=== PATIENT | female | born 1965 | race Caucasian/White ===

== ENCOUNTER → 2017-09-20 | Outpatient (CLI) | payer OTHER ==
[~2017-09-20] MED LIST: ESTR1TAB PO; IBUP1TAB7 PO; LEVO.075 PO; MEDR5TAB3 PO; PROG100C PO; TOPA50TA7 PO
[2017-09-20 14:15] LABS: AUTOMATED NEUTROPHIL # 3.3 TH/MM3 (1.8-7.7); BASOPHIL % 0.5 % (0.0-2.0); EOSINOPHIL # 0.2 TH/MM3 (0-0.4); EOSINOPHIL % 3.4 % (0.0-4.0); HEMATOCRIT 38.1 % (35.0-46.0); HEMOGLOBIN 12.8 GM/DL (11.6-15.3); LYMPH % 35.9 % (9.0-44.0); LYMPHOCYTE # 2.1 TH/MM3 (1.0-4.8); MEAN CELL VOLUME 83.5 FL (80.0-100.0); MEAN CORPUSCULAR HGB CONC 33.6 % (32.0-36.0); MONO % 5.1 % (0.0-8.0); MONOCYTE # 0.3 TH/MM3 (0-0.9); NEUT % 55.1 % (16.0-70.0); PLATELET COUNT 334 TH/MM3 (150-450); RED BLOOD COUNT 4.56 MIL/MM3 (4.00-5.30); RED CELL DISTRIBUTION WIDTH 16.3 % (11.6-17.2); WHITE BLOOD COUNT 5.9 TH/MM3 (4.0-11.0)
[2017-09-20 14:45] LABS: ALBUMIN 4.3 GM/DL (3.4-5.0); AST (GOT) 22 U/L (15-37); BICARBONATE 24.5 MEQ/L (21.0-32.0); BLOOD UREA NITROGEN 10 MG/DL (7-18); CALCIUM 8.5 MG/DL (8.5-10.1); CHLORIDE 108 MEQ/L (98-107); CREATININE 0.94 MG/DL (0.50-1.00); GLOMERULAR FILTRATION RATE 63 ML/MIN (>89); GLUCOSE,FASTING 83 MG/DL (74-99); SODIUM (NA) 142 MEQ/L (136-145)
[2017-09-20 14:46] LABS: ALT (GPT) 24 U/L (10-53)
[2017-09-20 14:49] LABS: ALKALINE PHOSPHATASE 49 U/L (45-117); TOTAL BILIRUBIN ADULT 0.7 MG/DL (0.2-1.0); TOTAL PROTEIN 7.9 GM/DL (6.4-8.2)
== END ==
LOC: CPRE 13:27
PROVIDERS: ATTEND Urology
DX: Z01.812 Encounter for preprocedural laboratory examination (principal); Z01.818 Encounter for other preprocedural examination; N20.0 Calculus of kidney
CPT/HCPCS: 36415; 80053; 85025

== ENCOUNTER 2017-09-23 07:34 | Day surgery (SDC) | payer OTHER ==
[~2017-09-23] VITALS: Ht 165.1 cm; Wt 68.2 kg
[2017-09-23 08:00] VITALS: BP 121/88; PULSE 77; RESP 16; TEMP 97.8; O2SAT 98
[2017-09-23] MEDS ORDERED: SODIUM CHLORIDE 0.9% 1000 ML IV SCH (08:00)
[2017-09-23] MEDS ORDERED: LEVOFLOXACIN 500 MG PREMIX 100 ML - nephrostomy tube insertion or exchange IV SCH (08:00)
[2017-09-23 08:29] LABS: PROTHROMBIN TIME - PATIENT 10.4 SEC (9.8-11.6)
[2017-09-23] MEDS ORDERED: MIDAZOLAM HCL 2 MG/2 ML VIAL ONE (09:00)
[2017-09-23] MEDS ORDERED: fentaNYL CITRATE 250 MCG/5 ML AMP ONE (09:00)
--- NOTE | 2017-09-23 10:20 | PD.RAD ---
Post Procedure Progress Note Pre Procedure Diagnosis: (1) Nephrolithiasis Post Procedure Diagnosis: (1) Nephrolithiasis Procedure Date: Sep 23, 2017 Supervising Radiologist: Dakota Ivy JR Proceduralist/Assist: Adeline Sanchez, RT(R)(), Margy Wu RT(R) Anesthesia: Conscious Sedation Plan of Activity Patient to Unit: ROPU Patient Condition: Good See PACS Report for procedural detail/treatment Drainage Procedure Procedure 1 Imaging Guidance: Fluoroscopy, Ultrasound Side: Right Procedure Type: Nephrostomy, Ureteral Stent Procedure: Placement Swedish: 8 Fluid Description: Clear Findings: Difficult case. Patient's right kidney sits quite high in the retroperitoneum. Two accesses performed. Black catheter access is mid pole and courses down ureter into the bladder. Blue catheter enters lower pole and is coiled in upper pole. 3 stones seen. Two in proximal ureter. Plan F/U with Dr Kellie Ivy Jr.,Dakota Tompkins MD Sep 23, 2017 10:20
[2017-09-23 10:25] VITALS: BP 105/69; PULSE 68; RESP 18; TEMP 98.3; O2SAT 99
[2017-09-23 10:40] VITALS: BP 115/71; PULSE 67; RESP 18; O2SAT 99
[2017-09-23 10:50] VITALS: BP 115/71; PULSE 68; RESP 18; O2SAT 99
[2017-09-23 11:20] VITALS: BP 107/73; PULSE 68; RESP 18; O2SAT 99
[2017-09-23 12:00] VITALS: BP 104/68; PULSE 76; RESP 16; O2SAT 96
--- NOTE | 2017-09-23 12:18 | RADRPT ---
EXAM DATE/TIME: 09/23/2017 10:25 [facility] COMPARISON: No previous studies available for comparison. INDICATIONS : Patient presents with calculus in right kidney in need of nephrostomy tube placement for nephrolithia sis. MEDICAL HISTORY : Hypothyroidism Osteoarthritis SURGICAL HISTORY : Breast Implant ENCOUNTER: Initial ACUITY: 1 month PAIN SCORE: 6/10 LOCATION: Bilateral lower back FLUORO TIME: 12.4 minutes IMAGE SERIES: 1 SEDATION TIME: 40 minutes CONTRAST: 30 cc Omnipaque (iohexol) 350 MEDICATION(S): 1.) 4 mg midazolam (Versed) IV 2.) 250 mcg fentanyl (Sublimaze) IV DEVICE(S): 1.) 8 Swiss nephrostomy catheter 2.) 4F Non Taper catheter PROCEDURE : 1. Ultrasound-guided puncture of the kidney. 2. Antegrade percutaneous pyelogram. 3. Percutaneous nephrostomy placement. 4. Conscious sedation with continuous EKG and oximetry monitoring. I reviewed the patient's palpation CT scan. The risks, benefits and alternatives to the procedure wer e explained and verbal and written consent was obtained. The site was prepped in sterile fashion. F ull sterile technique was used, including cap, mask, sterile gloves and gown and a large sterile shee t. Hand hygiene and 2% chlorhexidine and/or betadine/alcohol prep was utilized per protocol for cuta neous antisepsis. Sterile gel and sterile probe cover were utilized for ultrasound guidance. The s kin and subcutaneous tissues were infiltrated with local anesthetic solution. The patient's right kidney lies fairly cephalad within the retroperitoneum. The mid and upper pole ar e largely behind the lower ribs. Under sonographic guidance and fluoroscopic guidance a 22 gauge need le was passed down to the large stone within the renal pelvis. Injection of contrast opacified the co llecting system revealing a large stone at the UPJ. 2 stones are seen involving the proximal ureter. Each measures approximately 1.5 cm in size. These are nonobstructing. Contrast passes between the sto fiorella and into the urinary bladder. An access was performed under fluoroscopic guidance into the lower pole calyx. The lower pole access did cause a fairly tight bend in the catheter to gain access to the ureter which would likely generate some difficulty for stone extraction from the ureter. A second ac cess was therefore performed utilizing a midpole approach. This necessitated a subchondral approach i nvolve the 12th rib. This access shows left angle for the ureter. The lower pole access was utilized for an 8 Swiss nephrostomy tube which was coiled in the upper pole. The mid pole access was utilized for a 4 Swiss Berenstein catheter which was passed down the ureter and into the urinary bladder. Brent th were sutured in place. Conscious sedation was performed with the prescribed dosages and duration as above in the presence of an independent trained radiology nurse to assist in the monitoring of the patient. EKG and oximetry remained stable throughout the procedure. The patient tolerated the procedure well and there were n o complications. The patient was sent to post anesthesia recovery in stable condition. CONCLUSION: Uncomplicated nephrostomy tube placement as above. The 4 Swiss black Berenstein catheter is a midpol e approach and terminates in the urinary bladder. The 8 Swiss nephrostomy tube is a lower pole acces s and is coiled in the upper pole. The patient has 3 stones. A large stone at the UPJ with 2 smaller stones within the proximal ureter. No obstruction observed. Dakota Ivy Jr., MD on September 23, 2017 at 12:08 Board Certified Radiologist. This report was verified electronically.
== END 2017-09-23 12:20 | disposition home or self-care (01) ==
LOC: HROP 07:34 → HRIP 07:35 → HROP 12:20
PROVIDERS: ATTEND Urology
DX: N20.2 Calculus of kidney with calculus of ureter (principal); N28.1 Cyst of kidney, acquired; E03.9 Hypothyroidism, unspecified; M17.9 Osteoarthritis of knee, unspecified; M19.042 Primary osteoarthritis, left hand; M19.041 Primary osteoarthritis, right hand; Z87.440 Personal history of urinary (tract) infections; Z01.818 Encounter for other preprocedural examination
CPT/HCPCS: 50433; 50694; 85610; 85730; 99152; 99153; C1729; C1769; C1887; C1894; J1956; J2250; J3010; J7030

== ENCOUNTER 2017-09-26 06:02 | Observation (INO) | payer OTHER ==
[~2017-09-26] VITALS: Ht 162.6 cm; Wt 72.0 kg
[~2017-09-26 06:02] MED LIST changes: -PROG100C PO
[2017-09-26] MEDS ORDERED: POVIDONE IODINE 5% (ANTISEPSIS KIT) 4 APPLICATIONS EACH NARE PRN (07:00)
[2017-09-26] MEDS ORDERED: METOPROLOL TARTRATE 25 MG TAB PO PRN (07:00)
[2017-09-26] MEDS ORDERED: SODIUM CHLORID 0.9% 500 ML IV PRN (07:00)
[2017-09-26] MEDS ORDERED: LACTATED RINGER'S 1000 ML IV PRN (07:00)
[2017-09-26] MEDS ORDERED: CHLORHEXIDINE GLUCONATE 2 % 1 PACK (2 CLOTHS) TOPICAL PRN (07:00)
[2017-09-26] MEDS ORDERED: FUROSEMIDE 40 MG/4 ML VIAL ONE (07:08)
[2017-09-26] MEDS ORDERED: ceFAZolin 2 GM PREMIX 50 ML ONE (07:20)
[2017-09-26] MEDS ORDERED: ceFAZolin INJ 1,000 MG VIAL ONE (07:25)
[2017-09-26] MEDS ORDERED: SODIUM CHLORIDE 0.9% INJ 100 ML ONE (07:26)
[2017-09-26] MEDS ORDERED: ceFAZolin 2 GM PREMIX 50 ML IV SCH (07:30)
[2017-09-26] MEDS ORDERED: ceFAZolin 1,000 MG/NS 100 ML IV SCH ×2 (07:30)
[2017-09-26] MEDS ORDERED: ACETAMINOPHEN 1000 MG/100 ML 100 ML IV ONE (07:58)
--- NOTE | 2017-09-26 11:26 | PD.OP ---
Operative Report Date of Surgery: Sep 26, 2017 Preoperative Diagnosis: (1) Renal calculus, right (2) Ureteral calculus, right Postoperative Diagnosis: (1) Renal calculus, right (2) Ureteral calculus, right Procedure: Right nephrostogram, right percutaneous nephrolithotomy with ultrasonic lithotripsy and antegrade right ureteroscopy with laser lithotripsy. Anesthesia: General Surgeon: Mitch Hopkins Rivet Sorter(s): None Operation and Findings: Indication for procedures: Case of a pleasant 51-year-old female with an approximately 3 cm right renal pelvis calculus as well as 2 proximal ureteral calculi each measuring approximately 1 cm in size who presents now for definitive management. Operative procedures in detail: Patient was brought to the operating room suite and placed under general endotracheal anesthesia while still on the stretcher. Once intubated she was placed on the OR table in the prone position and all pressure points adequately padded. Patient was then prepped and draped in normal sterile fashion. After an appropriate timeout was undertaken I proceeded with performing a right nephrostogram through the previously placed nephrostomy tube. The patient was noted to have a large stone involving the renal pelvis as well as 2 proximal ureteral stones each measuring approximately 1 cm in size. I then was able to advance a sensor 0.035 wire through a secondarily previously placed nephroureteral tube. The wire was advanced all the way down into the urinary bladder under fluoroscopic guidance. Since this nephroureteral tube was at a secondary access site I utilized this 1 to extend the skin incision approximate 1 cm in length and I left the pigtail nephrostomy tube in place. I then sequentially dilated a tract over this wire with a 5 Faroese, 6 Faroese and double-lumen catheter to facilitate passage of the UroMax balloon. The UroMax balloon was then easily advanced with the tip within the renal pelvis and the balloon inflated to 20 frankie of pressure. The nephroscope sheath was then advanced over the balloon well was still inflated. The sheath was advanced into the right renal pelvis under fluoroscopy and the balloon subsequently deflated and removed. I then advanced the flexible cystoscope through this sheath and tracked this down the right ureter and the proximal ureteral stone was clearly visualized. I attempted to remove this intact with the 2.4 Faroese stone basket but it would not freely migrate. I does utilize the 200 m holmium laser fiber and broke the stone down into several small pieces which were subsequently easily retrieved and removed with the stone basket. I then reintroduced the flexible cystoscope down the ureter and the second ureteral stone was clearly visualized grasped with the same stone basket and removed intact. The rigid nephroscope was then utilized and I was able to clearly see the large right renal pelvis stone. This was broken down and extracted with the [employer] ultrasound device. Once the stone was broken down and removed I repeated flexible cystoscopy and no significantly sized stone fragments are seen either involving the intrarenal collecting system or the proximal ureter. I then repeated a nephrostogram through the previously placed nephrostomy tube and there was prompt drainage of contrast down the right ureter. The nephroscope and sheath were then removed and the site was closed with interrupted 2-0 silk sutures and a sterile dressing applied. The nephrostomy tube was connected to gravity drainage. The patient tolerated the procedures without complications and was transferred to the PACU in satisfactory condition. Mitch Hopkins MD Sep 26, 2017 11:26
[2017-09-26] MEDS ORDERED: Post-op Orders (for Pharmacy) XX ONE (11:30)
[2017-09-26] MEDS ORDERED: ONDANSETRON HCL 4 MG/2 ML VIAL IV PUSH PRN (11:30)
[2017-09-26] MEDS ORDERED: SODIUM CHLORIDE 0.9% FLUSH 10 ML FLUSH IV FLUSH PRN (11:30)
[2017-09-26] MEDS ORDERED: MIDAZOLAM HCL 2 MG/2 ML VIAL ONE (11:36)
[2017-09-26] MEDS ORDERED: *morphine SULFATE 10 MG/ML PERIprocedure ONLY ONE ×2 (11:39→12:05)
[2017-09-26] MEDS ORDERED: LIDOCAINE HCL 1% PF 5 ML SYRINGE OTHER ONE (12:00)
[2017-09-26] MEDS ORDERED: LACTATED RINGER'S 1000 ML INJ 1,000 ML IV ONE (12:00)
[2017-09-26] MEDS ORDERED: KETOROLAC TROMETHAMINE 30 MG/ML (IVP) VIAL IV PUSH ONE (12:00)
[2017-09-26] MEDS ORDERED: ONDANSETRON HCL 4 MG/2 ML VIAL IV ONE (12:00)
[2017-09-26] MEDS ORDERED: DEXAMETHASONE SOD PHOS 4 MG/ML VIAL IV ONE (12:00)
[2017-09-26] MEDS: DEXT 5%-NACL 0.45% 1000 ML INJ 1,000 ML IV SCH ×2 (12:00→20:30)
[2017-09-26] MEDS ORDERED: ROCURONIUM INJ 50 MG/5 ML SYRINGE IV PUSH ONE (12:00)
[2017-09-26] MEDS ORDERED: PROPOFOL 200 MG/20 ML AMP IV ONE (12:00)
[2017-09-26] MEDS ORDERED: ePHEDrine/NS 25 MG/5 ML SYRINGE IV ONE (12:00)
--- NOTE | 2017-09-26 13:02 | RADRPT ---
EXAM DATE/TIME: 09/26/2017 09:21 [facility] COMPARISON: No previous studies available for comparison. INDICATIONS : Right kidney stone with obstruction. MEDICAL HISTORY : Renal calculi. SURGICAL HISTORY : ENCOUNTER: Initial ACUITY: 1 day PAIN SCORE: Non-responsive. LOCATION: Right abdomen FINDINGS: Following percutaneous nephrolithotomy no residual stone is evident. Nephrostomy tube is in the nelly l pelvis. Guidewire down the ureter.. CONCLUSION: No residual stone. Cedric Cuenca MD FACR on September 26, 2017 at 13:00 Board Certified Radiologist. This report was verified electronically.
[2017-09-26] MEDS: HYDROmorphone HCL PF 2 MG/ML VIAL IV PUSH PRN ×2 (13:19→19:26)
[2017-09-26 16:00] VITALS: BP 119/68; PULSE 82; RESP 18; TEMP 97; O2SAT 97
[2017-09-26 20:00] VITALS: BP 116/80; PULSE 81; RESP 20; TEMP 98.2; O2SAT 98
[2017-09-26] MEDS: TOPIRAMATE 25 MG TAB PO SCH (20:32)
[2017-09-26] MEDS: SODIUM CHLORIDE 0.9% FLUSH 10 ML FLUSH IV FLUSH SCH (21:00)
[2017-09-27] VITALS: BP 110/65; PULSE 75; RESP 18; TEMP 97.9; O2SAT 98
[2017-09-27 04:00] VITALS: BP 113/73; PULSE 80; RESP 18; TEMP 98.4; O2SAT 100
[2017-09-27] MEDS: DEXT 5%-NACL 0.45% 1000 ML INJ 1,000 ML IV SCH (06:11)
[2017-09-27] MEDS: oxyCODONE/ACETAMINOPHEN 5 MG/325 MG TAB PO PRN ×3 (06:11→17:13)
[2017-09-27 07:38] LABS: HEMATOCRIT 33.7 % (35.0-46.0); HEMOGLOBIN 11.4 GM/DL (11.6-15.3)
[2017-09-27 08:00] VITALS: BP 130/74; PULSE 88; RESP 17; TEMP 97.8; O2SAT 99
[2017-09-27 08:11] LABS: BICARBONATE 27.3 MEQ/L (21.0-32.0); CALCIUM 8.1 MG/DL (8.5-10.1); CREATININE 0.81 MG/DL (0.50-1.00)
--- NOTE | 2017-09-27 08:11 | RADRPT ---
EXAM DATE/TIME: 09/27/2017 08:00 [facility] COMPARISON: ABDOMEN KUB ONLY, September 26, 2017, 9:21. INDICATIONS : Status post right percutaneous nephrolithotomy. MEDICAL HISTORY : Osteoarthritis. Hypothyroidism. Right side kidney nephrostomy tube placed on 09/23/17. SURGICAL HISTORY : section. Breast augmentation. ENCOUNTER: Subsequent ACUITY: 4 - 6 days PAIN SCORE: 5/10 LOCATION: Right Abdomen/flank. FINDINGS: Supine view of the abdomen was performed. The abdominal bowel gas pattern is normal. Percutaneous r ight sided nephrostomy tube noted. No abnormal masses, calcifications, or organomegaly is seen. The osseous structures are unremarkable. CONCLUSION: Percutaneous right sided nephrostomy tube. Pancho Pickering MD on September 27, 2017 at 8:09 Board Certified Radiologist. This report was verified electronically.
[2017-09-27] MEDS ORDERED: ESTRADIOL 1 MG TAB PO SCH (09:00)
[2017-09-27] MEDS ORDERED: LEVOTHYROXINE SODIUM 75 MCG TAB PO SCH (09:00)
[2017-09-27] MEDS: TOPIRAMATE 25 MG TAB PO SCH (09:40)
[2017-09-27] MEDS: POTASSIUM CHLOR 20 MEQ PREMIX 100 ML IV SCH ×3 (09:41→13:51)
[2017-09-27] MEDS: SODIUM CHLORIDE 0.9% FLUSH 10 ML FLUSH IV FLUSH SCH (09:41)
[2017-09-27] MEDS ORDERED: PERC5TAB12 PO (11:49)
[2017-09-27] MEDS ORDERED: CEPH-459 PO (11:49)
--- NOTE | 2017-09-27 11:52 | HHI.DS ---
Discharge Summary Admission Date Sep 26, 2017 at 11:55 Discharge Date: Sep 27, 2017 Admitting Diagnosis (1) Renal calculus, right Diagnosis: Principal ICD Codes: N20.0 - Calculus of kidney (2) Ureteral calculus, right Diagnosis: Principal ICD Codes: N20.1 - Calculus of ureter Brief History 51-year-old female with a large right renal calculus as well as 2 proximal ureteral calculi admitted for definitive management. Please refer to admission history and physical for additional history and pertinent physical findings. CBC/BMP: 09/27/17 0432 09/27/17 0432 Significant Findings Laboratory Tests Test 09/27/17 04:32 Hemoglobin 11.4 GM/DL (11.6-15.3) Hematocrit 33.7 % (35.0-46.0) Calcium Level 8.1 MG/DL (8.5-10.1) Potassium Level 2.9 MEQ/L (3.5-5.1) Chloride Level 108 MEQ/L (98-107) Estimat Glomerular Filtration Rate 75 ML/MIN (>89) PE at Discharge Abdomen soft, nondistended, nontender Right nephrostomy tube draining clear yellow urine. Extremities well-perfused, nontender Hospital Course Patient admitted on September 26 and underwent a right percutaneous nephrolithotomy with ultrasonic lithotripsy along with antegrade right ureteroscopy with laser lithotripsy. The procedures went well without complications. Postoperatively the patient did well. She was complaining of some nausea however by postop day #1 the nausea had significantly subsided. Laboratory studies on postop day 1 demonstrated a stable hematocrit however the patient was noted to have a low potassium and supplementation was ordered. The plan will be to repeat her serum potassium levels after potassium supplementation completed and if within normal range discharge the patient home. Patient will follow-up at my office in 3 days to have her right nephrostomy tube removed. Pt Condition on Discharge: Good Discharge Disposition: Discharge Home Discharge Instructions DIET: Follow Instructions for: As Tolerated, No Restrictions Activities you can perform: Shower Only-No Bath Activities to avoid: Strenuous Activity Mitch Hopkins MD Sep 27, 2017 11:52
[2017-09-27 12:00] VITALS: BP 118/66; PULSE 78; RESP 17; TEMP 96.9; O2SAT 95
[2017-09-27 13:08] LABS: BICARBONATE 27.9 MEQ/L (21.0-32.0); CALCIUM 8.3 MG/DL (8.5-10.1); CREATININE 0.75 MG/DL (0.50-1.00)
== END 2017-09-27 17:51 | disposition home or self-care (01) ==
LOC: HSDC 06:02 → N07B 11:55
PROVIDERS: ADMIT Urology; ATTEND Urology
DX: N20.2 Calculus of kidney with calculus of ureter (principal); R11.0 Nausea; E03.9 Hypothyroidism, unspecified; M19.90 Unspecified osteoarthritis, unspecified site
CPT/HCPCS: 00862; 50081; 50435; 52353; 74018; 76000; 80048; 82365; 82370; 84132; 85014; 85018; 86850; 86900; 86901; 86920; 88300; 94150; 96361; 96365; 96366; 96367; 96375; 96376; C1726; C1769; G0378; J0131; J0690; J1100; J1170; J1885; J1940; J2250; J2270; J2405; J3010; J3480; J7120